=== PATIENT | female | born 1985 | race Caucasian/White ===

== ENCOUNTER 2017-12-29 13:41 | Outpatient (RCR) | payer OTHER | END 2018-03-17 | disposition home or self-care (01) | LOC: WSOH | DX: M54.5 Low back pain (principal); X50.0XXA Overexertion from strenuous movement or load, initial encounter; Y92.59 Other trade areas as the place of occurrence of the external cause; Y99.0 Civilian activity done for income or pay ==

== ENCOUNTER 2018-10-26 12:40 | Outpatient (RCR) | payer OTHER | END 2018-11-04 13:46 | disposition home or self-care (01) | LOC: WSOH 12:40 | DX: S63.501A Unspecified sprain of right wrist, initial encounter (principal); M25.531 Pain in right wrist; X50.3XXA Overexertion from repetitive movements, initial encounter; Y92.63 Factory as the place of occurrence of the external cause; Y93.89 Activity, other specified; Y99.0 Civilian activity done for income or pay; Z88.5 Allergy status to narcotic agent ==